=== PATIENT | female | born 1995 | race Two or more races ===

== ENCOUNTER 2017-05-06 15:03 | Emergency (ER) | payer OTHER ==
[2017-05-06 15:21] VITALS: BP 123/68; PULSE 119; RESP 16; TEMP 98.8; O2SAT 97
--- NOTE | 2017-05-06 15:47 | EDPHY ---
H & P Stated Complaint: L knee injury Time Seen by Provider: 05/06/17 15:38 HPI/ROS: CHIEF COMPLAINT: Left knee and ankle injury HISTORY OF PRESENT ILLNESS: The patient presents the ED with complaints of acute left knee and ankle pain following a fall skiing. The patient reportedly felt a pop in her left knee as she sustained a twisting type injury. She has been able to weight bear with some discomfort. She complains of pain along the lateral aspect of the ankle and internally in the left knee. The patient denies any head, neck or back pain. She denies prior history of knee or ankle injury. REVIEW OF SYSTEMS: A comprehensive 10 point review of systems is otherwise negative aside from elements mentioned in the history of present illness. Source: Patient Exam Limitations: No limitations - Personal History LMP (Females 10-55): 1-7 Days Ago Current Tetanus/Diphtheria Vaccine: Yes Current Tetanus Diphtheria and Acellular Pertussis (TDAP): Yes - Medical/Surgical History Hx Asthma: No Hx Chronic Respiratory Disease: No Hx Diabetes: No Hx Cardiac Disease: No Hx Renal Disease: No Hx Cirrhosis: No Hx Alcoholism: No Hx HIV/AIDS: No Hx Splenectomy or Spleen Trauma: No Other PMH: denies - Social History Smoking Status: Never smoked - Physical Exam Exam: General Appearance: Alert, no distress Head: Atraumatic Eyes: Pupils equal, round, reactive ENT, Mouth: No hemotympanum, no oral trauma Neck: Nontender, trachea midline Respiratory: No chest wall tender, subcutaneous air, lungs clear bilaterally Cardiovascular: Regular rate and rhythm Abdomen: Abdomen is soft and nontender, pelvis stable Skin: No lacerations, No abrasion Back: No midline T/L/S pain Extremities: Tenderness to palpation along the medial aspect of the left ankle , no appreciable laxity or deformity, tenderness to palpation Neurological: A&Ox3, normal motor function, normal sensory exam Constitutional: Initial Vital Signs Temperature (C) 37.1 C 05/06/17 15:18 Heart Rate 119 H 05/06/17 15:18 Respiratory Rate 16 05/06/17 15:18 Blood Pressure 123/68 H 05/06/17 15:18 O2 Sat (%) 97 05/06/17 15:18 O2 Delivery Mode Room Air Allergies/Adverse Reactions: No Known Allergies Allergy (Unverified 05/06/17 15:18) Home Medications: Medication Instructions Recorded NK [No Known Home Meds] 05/06/17 Medical Decision Making - Diagnostics Imaging Results: Left ankle x-ray: Images reviewed by myself, no acute fracture appreciated. Left knee x-ray: Images reviewed by myself, no acute fracture appreciated. ED Course/Re-evaluation: The patient presents to the ED with complaints of left ankle and knee pain following a twisting accident skiing. Patient has no evidence of an obvious fracture noted on her x-rays. The patient will be placed in a Rodríguez wrap and given crutches. She is advised to follow up with Orthopedic surgery for any persistent pain, swelling or sensation of instability assist with aside occult injury not noted on the x-ray today. Differential Diagnosis: Differential diagnosis considered includes fracture, sprain, dislocation. Departure - Departure Disposition: Home, Routine, Self-Care Clinical Impression: Knee sprain Qualifiers: Encounter type: initial encounter Involved ligament of knee: unspecified collateral ligament Laterality: left Qualified Code(s): S83.402A - Sprain of unspecified collateral ligament of left knee, initial encounter Ankle sprain Qualifiers: Encounter type: initial encounter Involved ligament of ankle: other ligament Laterality: left Qualified Code(s): S93.492A - Sprain of other ligament of left ankle, initial encounter Condition: Good Instructions: Knee Sprain (ED) Additional Instructions: 1. Crutches and Rodríguez wrap as needed for support. 2. Weight bear as tolerated. 3. Please follow up with Dr. Arguello from Orthopedic surgery for any pain, swelling or instability which persists past 5-7 days as this may be the sign of an injury not seen on the x-ray today. 4. Take Ibuprofen or Motrin 600 mg by mouth three times a day. Referrals: Chivo Arguello MD [Medical Doctor] - As per Instructions
== END 2017-05-06 16:22 | disposition home or self-care (01) ==
DX: S83.402A Sprain of unspecified collateral ligament of left knee, initial encounter (principal); S93.492A Sprain of other ligament of left ankle, initial encounter; V00.321A Fall from snow-skis, initial encounter; Y99.8 Other external cause status; Y93.23 Activity, snow (alpine) (downhill) skiing, snowboarding, sledding, tobogganing and snow tubing